=== PATIENT | male | born 1975 | race Caucasian/White ===

== ENCOUNTER 2020-07-24 20:04 | Emergency (ER) | payer BC, SELFPAY ==
--- NOTE | ~2020-07-24 | CT_ITS ---
EXAMINATION: CT abdomen pelvis w con DATE: 07/24/2020 21:04 INDICATION: Left lower quadrant abdominal pain TECHNIQUE: Computed tomography (CT) of the abdomen and pelvis was performed with 100 mL Omnipaque-350 intravenous contrast. Automated exposure control and iterative reconstruction technique were employe d. The dose-length product was 306.83 mGy-cm. COMPARISON: None FINDINGS: Minimal dependent atelectasis in the bilateral lower lobes. Heart size is normal. No pericardial or p leural effusion. Liver, gallbladder, spleen, pancreas and bilateral adrenal glands are normal. 5 x 4 x 3 mm stone in the proximal left ureter with mild left hydronephrosis. Additional 1 mm and 3 mm ston es at lower pole calyces of both the left and right kidneys. No right-sided ureteral stones or hydron ephrosis. Bladder is normal. Bowels including the appendix are normal. No free intraperitoneal gas or fluid. No pathologically enlarged abdominal or pelvic lymphadenopathy. Mild lumbar dextrocurvature w ith mild spondylosis. IMPRESSION: 1. Bilateral nephrolithiasis with obstructing 5 x 4 x 3 mm proximal left ureteral stone with mild lef t hydronephrosis. Reviewed, dictated and finalized at location A. IMPRESSION: 1. Bilateral nephrolithiasis with obstructing 5 x 4 x 3 mm proximal left ureter al stone with mild left hydronephrosis.
[2020-07-24 20:16] VITALS: BP 152/84; PULSE 69; RESP 18; TEMP 37.1; O2SAT 100
[2020-07-24] MEDS: SODIUM CHLORIDE 0.9% IV 1,000 ML 999 ML IV CONT (20:41)
[2020-07-24] MEDS: DICYCLOMINE HCL INJ 20 MG/2 ML VIAL IM (20:41)
[2020-07-24] MEDS: ONDANSETRON INJ 4 MG/2 ML VIAL IV PUSH (20:41)
--- NOTE | 2020-07-24 20:46 | PC.NURSE ---
Patient unable to provide a urine specimen at this time.
--- NOTE | 2020-07-24 20:46 | ED.GENADULT ---
HPI - General Adult General Chief complaint: Abdominal Pain Stated complaint: abd pain Time Seen by Provider: 07/24/20 20:21 History of Present Illness HPI narrative: Patient 34-year-old gentleman presents emerged part with chief complaint of left lower quadrant pain. Patient reports that he started having discomfort yesterday afternoon he reports that it is more of a cramping-like sensation. Patient states is localized to the left lower quadrant reports had some nausea with this denies vomiting denies diarrhea denies blood in his stool. Patient states he has had no prior abdominal surgeries. Patient reports symptoms not worsened anything or they improved by anything Related Data Allergies Allergy/AdvReac Type Severity Reaction Status Date / Time No Known Allergies Allergy Verified 07/24/20 20:19 Review of Systems Review of Systems: Narrative: A 10 system review of systems was completed on the patient and is negative except for what is stated in the HPI. Nursing and ancillary documentation was reviewed. [facility] Social History Social History Gender identity (if verbalized by the patient): Male Comments Patient denies significant past medical history Social history the patient denies illicit drug use reports to use of tobacco Exam Narrative: Exam Narrative: GENERAL: Well-appearing, well-nourished, and in no acute distress. HEAD: Normocephalic, atraumatic. EYES: PERRLA and EOMI. ENT: Nares clear, no rhinorrhea or epistaxis. Mucous membranes moist. NECK: Supple. CHEST: Clear to auscultation. No respiratory distress. HEART: Regular rate and rhythm. No murmur heard. Normal peripheral pulses. ABDOMEN: Soft, nontender, nondistended, normal active bowel sounds. EXTREMITIES: Normal range of motion. No edema. SKIN: Warm, dry, no rash. NEURO: No focal deficits. Alert and oriented x3. PSYCH: Normal mood and affect. Course Vital Signs Vital signs: Vital Signs Temperature 37.1 C 07/24/20 20:16 Pulse Rate 69 07/24/20 20:16 Respiratory Rate 18 07/24/20 20:16 Blood Pressure 152/84 H 07/24/20 20:16 Pulse Oximetry 100 07/24/20 20:16 Temperature 37.1 C 07/24/20 20:16 Pulse Rate 69 07/24/20 20:16 Respiratory Rate 18 07/24/20 20:16 Blood Pressure 152/84 H 07/24/20 20:16 Pulse Oximetry 100 07/24/20 20:16 Medical Decision Making Vital Signs Vital Signs: Vital Signs Temperature 37.1 C 07/24/20 20:16 Pulse Rate 69 07/24/20 20:16 Respiratory Rate 18 07/24/20 20:16 Blood Pressure 152/84 H 07/24/20 20:16 Pulse Oximetry 100 07/24/20 20:16 Temperature 37.1 C 07/24/20 20:16 Pulse Rate 69 07/24/20 20:16 Respiratory Rate 18 07/24/20 20:16 Blood Pressure 152/84 H 07/24/20 20:16 Pulse Oximetry 100 07/24/20 20:16 Lab Data Result diagrams: 07/24/20 20:40 07/24/20 20:54 Labs: Lab Results 07/24/20 07/24/20 07/24/20 Range/Units 20:40 20:40 20:54 WBC 7.3 (4.5-10.0) K/mm3 RBC 5.58 (4.6-6.20) M/mm3 Hgb 16.4 (14.0-18.0) g/dL Hct 49.5 (42.0-52.0) % MCV 88.7 (80-100) fl MCH 29.4 (26-34) pg MCHC 33.1 (32-36) g/dl RDW 13.9 (11.5-14.5) % Plt Count 285 (150-375) k/mm3 MPV 9.5 (7.4-10.4) fl Immature Gran % (Auto) 0.1 (0-0.5) % Neut % (Auto) 40.0 L (45.5-73.1) % Lymph % (Auto) 41.8 (18.3-44.2) % [place] % (Auto) 14.0 H (2.6-8.5) % Eos % (Auto) 2.5 (0-4.4) % Baso % (Auto) 1.6 H (0.2-1.2) % Lymph # (Auto) 3.05 (0.9-3.2) K/mm3 [place] # (Auto) 1.0 H (0.1-0.6) K/mm3 Eos # (Auto) 0.2 (0-0.3) K/mm3 Baso # (Auto) 0.1 (0.0-0.1) K/mm3 Abs Immat Gran (auto) 0.01 (0.00-0.031) K/mm3 Absolute Neuts (auto) 2.9 (1.3-6.7) K/mm3 Absolute Nucleated RBC 0.0 (0.0-0.012) K/mm3 Nucleated RBC % 0.0 (0.0-0.2) % Sodium 142 (137-145) mmol/L Potassium 4.6 (3.4-5.0) mmol/L
[2020-07-24 20:48] LABS: Basophils Absolute Auto 0.1 K/mm3 (0.0-0.1); Basophils Percent Auto 1.6 % (0.2-1.2); Eosinophils Absolute Auto 0.2 K/mm3 (0-0.3); Eosinophils Percent Auto 2.5 % (0-4.4); Hematocrit 49.5 % (42.0-52.0); Hemoglobin 16.4 g/dL (14.0-18.0); Immature Granulocyte Absolute 0.01 K/mm3 (0.00-0.031); Immature Granulocyte Percent A 0.1 % (0-0.5); Lymphocytes Absolute Auto 3.05 K/mm3 (0.9-3.2); Lymphocytes Percent Auto 41.8 % (18.3-44.2); Mean Corpuscular HGB Conc 33.1 g/dl (32-36); Mean Corpuscular Hemoglobin 29.4 pg (26-34); Mean Corpuscular Volume 88.7 fl (80-100); Mean Platelet Volume 9.5 fl (7.4-10.4); Neutrophils Absolute Auto 2.9 K/mm3 (1.3-6.7); Platelet Count Result 285 k/mm3 (150-375); Red Blood Count 5.58 M/mm3 (4.6-6.20); Red Cell Distribution Width 13.9 % (11.5-14.5); White Blood Count 7.3 K/mm3 (4.5-10.0)
--- NOTE | 2020-07-24 20:49 | PC.NURSE ---
Patient taken to CT.
[2020-07-24 20:57] LABS: Estimated CRCL calculation 53 ml/min; Estimated Glomerular Filt Rate 55
[2020-07-24 20:59] LABS: Alanine Aminotransferase 78 U/L (4-50); Albumin Level 4.3 g/dL (3.5-5.1); Alkaline Phosphatase 27 U/L (38-126); Anion Gap 10 mmol/L (8-16); Aspartate Amino Transferase 36 U/L (17-59); Bilirubin,Total 0.5 mg/dL (0.2-1.3); Blood Urea Nitrogen 22 mg/dL (9-20); Calcium 9.7 mg/dL (8.4-10.2); Carbon Dioxide 28 mmol/L (22-30); Chloride 104 mmol/L (98-107); Estimated CRCL calculation 61 ml/min; Estimated Glomerular Filt Rate > 60; Glucose 87 mg/dL (75-110); Lipase 250 U/L (23-300); Potassium 4.6 mmol/L (3.4-5.0); Sodium 142 mmol/L (137-145)
--- NOTE | 2020-07-24 21:18 | PC.NURSE ---
Patient back from CT, unable to provide a urine specimen at this time. Patient a/o x4. Patient refusing straight cath at this time.
[2020-07-24] MEDS: KETOROLAC 30 MG/ML VIAL (*BKC) IV PUSH (21:30)
[2020-07-24] MEDS: MORPHINE SULFATE (*CRX) 4 MG/ML INJ IV PUSH (21:30)
[2020-07-24 21:48] LABS: Add Urine Microscopic? YES; Appearance Urine Cloudy (Clear); Bilirubin Urine Negative (Negative); Blood Urine 3+ (Negative); Color Urine Yellow (Yellow); Glucose Urine UA Negative (Negative); Ketones Urine Negative (Negative); Leukocyte Esterase Ur Negative LEU/UL (Negative); Mucus Urine Moderate /lpf; Nitrate Urine Negative (Negative); Protein Urine 2+ mg/dL (Negative); RBC Urine >75 /hpf (0-2); Urobilinogen Urine Negative mg/dL (<2.0); WBC Urine 0-3 /hpf
[2020-07-24 22:04] LABS: Specific Grav Ur 1.042 (1.001-1.035)
[2020-07-24 22:29] VITALS: BP 111/77; PULSE 61; RESP 17; TEMP 36.7; O2SAT 98
== END 2020-07-24 22:32 | disposition home or self-care (01) ==
PROVIDERS: Emergency Medicine; Emergency Provider Emergency Medicine
DX: N13.2 Hydronephrosis with renal and ureteral calculous obstruction (principal)
CPT/HCPCS: 36415; 74177; 80053; 81001; 83690; 85025; 96361; 96372; 96374; 96375; 99284; J0500; J1885; J2270; J2405; J7030; Q9967

== ENCOUNTER → 2020-08-01 15:32 | Outpatient (CLI) | payer BC, SELFPAY ==
--- NOTE | ~2020-08-01 | XR_ITS ---
XR abdomen/kub 1V 08/01/2020 15:56 INDICATION: Left ureteral stone TECHNIQUE: KUB COMPARISON: CT dated 07/24/2020 FINDINGS: Bowel gas pattern is normal. There is no evidence of free air, mass, organomegaly, ascites or obstruction. There is a distal left ureteral stone which has migrated since prior CT, now in the left pelvis at the inferior level of the sacroiliac joint. The bones appear intact. IMPRESSION: 1: Interval migration of left ureteral stone into the pelvis. Stone measures approximately 4 mm maxim um dimension.. Reviewed, dictated and finalized at location B. IMPRESSION: 1: Interval migration of left ureteral stone into the pelvis. Stone measures ap proximately 4 mm maximum dimension..
== END ==
PROVIDERS: Visit Provider Urology
DX: N20.1 Calculus of ureter (principal)
CPT/HCPCS: 74018

== ENCOUNTER 2020-08-03 11:05 | Outpatient (CLI) | payer BC, SELFPAY ==
--- NOTE | 2020-08-03 11:10 | ECG_ITS ---
Measurements Intervals [place] Rate: 78 P: 45 OR: 144 QRS: 46 QRSD: 79 T: 35 QT: 338 QTc: 386 Interpretive Statements SINUS RHYTHM BASELINE ARTIFACT- I, II, AVR NORMAL ECG Electronically Signed On 08-03-2020 11:22:28 CDT by Colin Blue D.O.
[2020-08-03 11:44] LABS: EDCOVIDSCREEN Negative (Negative)
== END 2020-08-03 11:06 | disposition home or self-care (01) ==
LOC: ANHSURGERY 11:10
PROVIDERS: Visit Provider Urology
DX: Z01.812 Encounter for preprocedural laboratory examination (principal); Z01.810 Encounter for preprocedural cardiovascular examination; Z20.822 Contact with and (suspected) exposure to COVID-19; F17.210 Nicotine dependence, cigarettes, uncomplicated
CPT/HCPCS: 36415; 87426; 93005; C9803

== ENCOUNTER 2020-08-04 01:25 | Day surgery (SDC) | payer BC, SELFPAY ==
[2020-08-02 17:04] VITALS: BMI 25.8
--- NOTE | 2020-08-03 13:18 | P.PNAN_ITS ---
Anes - Initial Pre Proc Eval Procedure: Operation Date: 08/04/20 15:45 Proposed Procedures p Cystoscopy, Left Ureteroscopy with Stone Extraction, - Jim Hay MD s Possible Laser Lithotripsy, Possible Left Stent Placement - Jim Hay MD Date/Time: 08/03/20 13:18 Surgeon: Jim Hay MD Pre Op Diagnosis: left ureteral stone Patient Data Age: 44 Gender: M Height: 1.65 m Weight: 70.5 kg Allergies Allergy/AdvReac Type Severity Reaction Status Date / Time No Known Allergies Allergy Verified 07/24/20 20:19 Home Medications Medication Instructions Recorded Confirmed Type hydrocodone-acetaminophen 1 tablet PO Q6H PRN 3 Days #12 07/24/20 08/02/20 Rx tablet ondansetron 4 mg PO Q8H PRN #10 tablet 07/24/20 08/02/20 Rx tamsulosin [Flomax] 0.4 mg PO DAILY #10 cap 07/24/20 08/02/20 Rx Patient hx anesthesia problems: none Family hx anesthesia problems: none [facility] [place] Past Medical History Medical History Smoker Ureterolithiasis Social History Social History Smoking packs per day: 1 Smoking cigarettes per day: 20.0 Years smoked: 25 Smoking pack-years: 25.00 Smoking status: Current every day smoker Tobacco type: cigarettes Alcohol intake: never Substance use: never Last use: 08/02/20 Living arrangements: with family Gender identity (if verbalized by the patient): Male Sexual Orientation (if Verbalized by the Patient): Straight or Heterosexual Spiritual care concerns: No Anes - Eval Final PreProcedure Day of Procedure 08/03/20 13:18 Patient weight: overweight Heart: regular rate and rhythm Lungs: clear to auscultation and normal air movement Airway: Mallampati scale class II Neurological: alert and oriented Last oral intake: >/= 8 hours ASA classification: II Emergent: no Anesthetic plan: proceed Anesthesia type and monitoring: general LMA Informed Consent: The patient's anesthetic plan and its attendant risks and benefits were discussed with the patient/family/POA. Questions were solicited an d answers provided to the satisfaction of the patient/family/POA.
[2020-08-04] VITALS (7 sets, daily range): BP systolic 100–150; BP diastolic 74–88; PULSE 50–74; RESP 12–16; TEMP 36.2; O2SAT 100
--- NOTE | ~2020-08-04 | XR_ITS ---
EXAMINATION: XR fluoroscopy no charge DATE: 08/04/2020 15:43 INDICATION: Left ureteral stone. TECHNIQUE: 2 intraoperative fluoroscopic views of the pelvis were obtained. I was not present. Fluoro scopy exposure time was 2 seconds. COMPARISON: CT abdomen and pelvis 07/24/2020 FINDINGS: Images demonstrate a wire in left ureter. There is a 4 mm stone in left ureter. IMPRESSION: 1. 4 mm stone in left ureter. Reviewed, dictated and finalized at location A.
--- NOTE | 2020-08-04 06:54 | PM.HPGS ---
History of Present Illness History of Present Illness Consent: Risks, benefits, and alternatives have been discussed and questions answered. Patient agrees to proceed with procedure. Chief complaint: left ureteral stone Narrative: Daniel Polk is a 44 year old male without prior significant urological history and without history of urolithiasis. he was in the emergency department approximately 2 weeks ago with left flank pain. This has been occurring intermittently. It is associated with some nausea but no vomiting. He has had no fevers chills or gross hematuria. Imaging 1st revealed a proximal ureteral calculus which dropped into his more distal ureteral follow-up KUB. After discussion of options including ESWL, further watchful waiting and endoscopic extraction he has elected for the latter. He is aware the risks including, but not limited to, adverse cardiopulmonary events, ureteral injury and the need for stent placement. Review of Systems Cardiovascular: Cardiovascular: Denies chest pain, Denies lightheadedness, Denies palpitations and Denies dyspnea Respiratory: Respiratory: Denies dyspnea Gastrointestinal: Gastrointestinal: Denies diarrhea, Denies nausea and Denies vomiting Genitourinary: Genitourinary: Denies hematuria and Denies dysuria Endocrine: Endocrine: Denies palpitations PMF Past Medical History Medical History Smoker Ureterolithiasis Social History Social History Smoking packs per day: 1 Smoking cigarettes per day: 20.0 Years smoked: 25 Smoking pack-years: 25.00 Smoking status: Current every day smoker Tobacco type: cigarettes Alcohol intake: never Substance use: never Last use: 08/02/20 Living arrangements: with family Gender identity (if verbalized by the patient): Male Sexual Orientation (if Verbalized by the Patient): Straight or Heterosexual Spiritual care concerns: No Meds Home Medications and Allergies Home Medications Medication Instructions Recorded Confirmed Type hydrocodone-acetaminophen 1 tablet PO Q6H PRN 3 Days #12 07/24/20 08/02/20 Rx tablet ondansetron 4 mg PO Q8H PRN #10 tablet 07/24/20 08/02/20 Rx tamsulosin [Flomax] 0.4 mg PO DAILY #10 cap 07/24/20 08/02/20 Rx Allergies Allergy/AdvReac Type Severity Reaction Status Date / Time No Known Allergies Allergy Verified 07/24/20 20:19 Exam Const: General: no acute distress Resp: Effort & Inspection: normal respiratory effort GI: Inspection: non-distended GI Palp: No abdominal tenderness and No Guarding due to palpation present (GI) Auscultation: normal bowel sounds Assessment and Plan Assessment and plan (1) Left ureteral stone: Code(s): N20.1 - Calculus of ureter Status: Acute Assessment and Plan: cystoscopy, left ureteroscopy with stone extraction, possible laser lithotripsy and possible stent placement.
--- NOTE | 2020-08-04 07:00 | WPDHPUPDATE1 ---
History and Physical Update Update Date/Time: 08/04/20 07:00 History and Physical has been reviewed, including an updated exam of the patient. There are NO changes in the patient's condition. Risks, benefits, and alternatives have been discussed and questions answered. Patient agrees to proceed with procedure.
[2020-08-04] MEDS: LACTATED RINGERS 1,000 ML 30 ML IV CONT ×2 (14:00→15:44)
[2020-08-04] MEDS: ceFAZolin 2 GM/D5W 50 ML 2 GM/50 ML BAG IVPB (15:06)
--- NOTE | 2020-08-04 15:41 | W.PM.PROC2 ---
Procedure Note - Detailed Date of Procedure 08/04/20 Pre-op Diagnosis left ureteral stone Post-op Diagnosis same Procedure Performed cystoscopy, left ureteroscopy with laser lithotripsy and stone extraction Surgeon Jim Hay MD [employer] None Anesthesia general Indications left mid ureteral stone Findings mm left mid ureteral stone Description of Procedure Pt. is brought to the op suite was prepped draped in routine sterile fashion while in dorsal lithotomy position after the uneventful induction of a general anesthetic. Cystoscopy is undertaken with a 19 F rigid cystoscope. There is no urethral strictures. Bladder is normal without intravesical foreign body neoplasm. Mucosa is normal without hyperemia. Has a single orthotopic ureteral orifice. A 0.035 in glidewire was advanced left renal pelvis and the distal ureter was dilated with an 8 F 10 F dilator. Ureteroscopy was undertaken with a short tapered semi-rigid ureteral scope. He has a fairly large stone at the iliac vessels. Using a holmium laser I dusted the stone to tiny particles. The 3 larger residual particles were extracted with a 1.9 F disposable stone basket. Was very careful because of the ease of this manipulation I opted not to place ureteral stent. Was taken recovery in good condition tolerated the procedure well. Implants None Estimated Blood Loss 0 Drains No Packing No Pathology yes Complications No immediate complications Condition stable Disposition PACU
== END 2020-08-04 17:03 | disposition home or self-care (01) ==
PROVIDERS: Visit Provider Urology
PROC: (CPT 52352; principal; 2020-08-04 15:45)
PROC: (CPT 52353; 2020-08-04 15:45)
DX: N20.1 Calculus of ureter (principal); F17.210 Nicotine dependence, cigarettes, uncomplicated
CPT/HCPCS: 52353; 36415; 82365; 87426; 88300; 93005; A9270; C1769; C9803; J0690; J1100; J2250; J2405; J2704; J3010; J7120

== ENCOUNTER → 2020-09-09 15:35 | Outpatient (CLI) | payer BC, SELFPAY ==
--- NOTE | ~2020-09-09 | US_ITS ---
EXAMINATION: US retroperitoneal comp DATE: 09/09/2020 15:50 INDICATION: Nephrolithiasis and hydronephrosis. TECHNIQUE: Multiple ultrasound grayscale images of the kidneys were obtained. COMPARISON: CT dated 07/24/2020 FINDINGS: The right kidney measures 11.9 x 4.3 x 5.1 cm. The left kidney measures 10.9 x 7.0 x 4.9 cm. The kidn eys demonstrate normal echogenicity. There is no hydronephrosis in either kidney. No narrowing renal stones identified. The bladder is normal. IMPRESSION: 1. Normal kidneys without hydronephrosis. Reviewed, dictated and finalized at location A.
== END ==
PROVIDERS: Visit Provider Urology
DX: N20.0 Calculus of kidney (principal)
CPT/HCPCS: 76770

== ENCOUNTER 2021-01-20 17:28 | Emergency (ER) | payer BC, SELFPAY ==
--- NOTE | ~2021-01-20 | XR_ITS ---
EXAMINATION: XR chest 1V portable EXAM DATE: 01/20/2021 18:24 INDICATION: COVID + since last , cough, congestion. TECHNIQUE: Portable AP frontal chest x-ray was obtained. There is no prior study for comparison. FINDINGS: The lungs are clear. There are no pleural effusions. The cardiomediastinal silhouette is within normal limits. There is no pneumothorax suspected. The bones and soft tissues are unremarkab le. IMPRESSION: No acute cardiopulmonary findings. Reviewed, dictated and finalized at location A. RVISOR TYPE DISK QUALITY CONTROL
[2021-01-20 17:31] VITALS: BP 112/58; PULSE 62; RESP 18; TEMP 36.3; O2SAT 100
--- NOTE | 2021-01-20 18:14 | ED.EYEPROB ---
HPI - Eye Problem General Chief complaint: Eye Problems Stated complaint: COVID + Time Seen by Provider: 01/20/21 17:51 Source: patient Mode of arrival: ambulatory Limitations: no limitations History of Present Illness HPI Narrative: This is a 45 year old male that presents to the ER for cold symptoms present over the last week and a half. Reports congestion, cough, headache. He tested positive for COVID about a week ago. He is not vaccinated. Also reports he has had some swelling and redness to the left eyelid. Denies fever, vision changes, chest pain or shortness of breath. Related Data Allergies Allergy/AdvReac Type Severity Reaction Status Date / Time No Known Allergies Allergy Verified 01/20/21 18:41 Review of Systems Review of Systems: CONSTITUTIONAL: Denies fever EYES: Denies visual changes, redness, or discharge. ENT: Reports congestion, sore throat CARDIOVASCULAR: Denies chest pain RESPIRATORY: Reports cough. Denies dyspnea. SKIN: Denies rash NEUROLOGIC: Reports headache. Denies numbness, or weakness. All systems reviewed & are unremarkable except as noted in HPI and below PMFSH Past Medical History Medical History Smoker Ureterolithiasis Social History Social History Smoking packs per day: 1 Smoking cigarettes per day: 20.0 Years smoked: 25 Smoking pack-years: 25.00 Smoking status: Current every day smoker Tobacco type: cigarettes Alcohol intake: never Substance use: never Last use: 08/02/20 Gender identity (if verbalized by the patient): Male Sexual Orientation (if Verbalized by the Patient): Straight or Heterosexual Spiritual care concerns: No Exam Narrative: GENERAL: Well-appearing, well-nourished, and in no acute distress. HEAD: Normocephalic, atraumatic. EYES: PERRLA and EOMI. Mild edema and erythema to the left eyelid ENT: Nares clear, no rhinorrhea or epistaxis. Mucous membranes moist. Oropharynx without tonsillar hypertrophy exudate or other lesions. Bilateral TMs pearly agarwal non-bulging NECK: Supple. No adenopathy or masses. CHEST: Clear to auscultation. No respiratory distress. No wheezes rales or rhonchi HEART: Regular rate and rhythm. No murmur heard. Normal peripheral pulses. EXTREMITIES: Normal range of motion. No edema. Strength equal in bilateral upper extremities (5/5) SKIN: Warm, dry, no rash. NEURO: No focal deficits. Alert and oriented x3. Cranial nerves II through XII grossly intact PSYCH: Normal mood and affect Course Vital Signs Vital signs: Vital Signs Temperature 97.4 F L 01/20/21 17:31 Pulse Rate 62 01/20/21 17:31 Respiratory Rate 18 01/20/21 17:31 Blood Pressure 112/58 L 01/20/21 17:31 Pulse Oximetry 100 01/20/21 17:31 Temperature 98.8 F 01/20/21 18:37 Pulse Rate 87 01/20/21 18:37 Respiratory Rate 16 01/20/21 18:37 Blood Pressure 111/75 01/20/21 18:37 Pulse Oximetry 99 01/20/21 18:37 MDM - Eye Problem MDM Narrative Medical decision making narrative: Patient presents to the ER for cold symptoms. Known COVID +. He is afebrile and nontoxic-appearing. He is neurologically intact. CBC and metabolic panel without concerning findings. ESR is not elevated. CRP elevated, likely due to Covid infection. Chest x-ray without acute cardiopulmonary abnormality. Patient's oxygen saturation has remained normal on room air. Patient also with redness and swelling of the left eyelid. Does appear possibly allergic in nature. He denies any eye pain. Visual acuity is normal. Will be started on oral antibiotics in case of possible periorbital cellulitis. Patient was instructed on continued care of viral infection. He is to follow-up with primary care doctor. He was given warnings to return to the ER Lab Data Attestation: I reviewed the patient's lab results. Result diagrams: 01/20/21 18:12 01/20
[2021-01-20 18:22] LABS: Basophils Percent Auto 0.5 % (0.2-1.2); Eosinophils Absolute Auto 0.1 K/mm3 (0-0.3); Eosinophils Percent Auto 0.8 % (0-4.4); Hematocrit 48.8 % (42.0-52.0); Hemoglobin 16.5 g/dL (14.0-18.0); Immature Granulocyte Absolute 0.02 K/mm3 (0.00-0.031); Immature Granulocyte Percent A 0.3 % (0-0.5); Lymphocytes Absolute Auto 1.48 K/mm3 (0.9-3.2); Lymphocytes Percent Auto 20.3 % (18.3-44.2); Mean Corpuscular HGB Conc 33.8 g/dl (32-36); Mean Corpuscular Hemoglobin 27.6 pg (26-34); Mean Corpuscular Volume 81.7 fl (80-100); Mean Platelet Volume 8.8 fl (7.4-10.4); Monocytes Percent Auto 13.6 % (2.6-8.5); Neutrophils Absolute Auto 4.7 K/mm3 (1.3-6.7); Neutrophils Percent Auto 64.5 % (45.5-73.1); Platelet Count Result 285 k/mm3 (150-375); Red Blood Count 5.97 M/mm3 (4.6-6.20); Red Cell Distribution Width 17.6 % (11.5-14.5); White Blood Count 7.3 K/mm3 (4.5-10.0)
[2021-01-20 18:37] VITALS: BP 111/75; PULSE 87; RESP 16; TEMP 37.1; O2SAT 99
[2021-01-20 18:39] LABS: Anion Gap 10 mmol/L (8-16); Blood Urea Nitrogen 13 mg/dL (9-20); Calcium 8.9 mg/dL (8.4-10.2); Carbon Dioxide 26 mmol/L (22-30); Chloride 102 mmol/L (98-107); Estimated CRCL calculation 79 ml/min; Estimated Glomerular Filt Rate > 60; Glucose 125 mg/dL (65-110); Potassium 3.6 mmol/L (3.4-5.0); Sodium 138 mmol/L (137-145)
[2021-01-20] MEDS: diphenhydrAMINE HCl CAP 25 MG CAPSULE 50 MG PO (18:45)
[2021-01-20] MEDS: ACETAMINOPHEN 325 MG TABLET 650 MG PO (18:45)
[2021-01-20] MEDS: FAMOTIDINE 20 MG TABLET PO (18:46)
[2021-01-20] MEDS: KETOROLAC (*BKC) 60 MG/2 ML VIAL IM (18:46)
[2021-01-20 18:49] LABS: CRP 14.8 mg/dL (<1.0)
[2021-01-20 18:53] LABS: Erythrocyte Sedimentation Rate 9 mm/hr (0-20)
== END 2021-01-20 21:08 | disposition home or self-care (01) ==
PROVIDERS: Physician Assistant; Emergency Provider Emergency Medicine
DX: U07.1 COVID-19 (principal); L03.213 Periorbital cellulitis; F17.210 Nicotine dependence, cigarettes, uncomplicated
CPT/HCPCS: 36415; 71045; 80048; 85025; 85652; 86140; 96372; 99283; A9270; J1885